=== PATIENT | female | born 1960 | race African-American/Black ===

== ENCOUNTER 2016-09-20 10:24 | Inpatient (IN) | payer OTHER ==
[~2016-09-20] VITALS: Ht 157.5 cm; Wt 71.2 kg
[2016-09-20 12:00] VITALS: BP_SYST 134
[2016-09-20 14:47] LABS: BASOPHILS # (AUTO) 0.1 K/uL (0.0-0.2); BASOPHILS % (AUTO) 1.7 % (0.0-2.0); EOSINOPHILS # (AUTO) 0.1 K/uL (0.0-0.4); EOSINOPHILS % (AUTO) 1.1 % (0.0-4.0); HEMATOCRIT 41.1 % (36-48); HEMOGLOBIN 13.6 g/dL (12.0-16.0); LYMPHOCYTES # (AUTO) 2.1 K/uL (1.0-5.5); LYMPHOCYTES % (AUTO) 36.2 % (20.5-51.5); MEAN CORPUSCULAR HEMOGLOBIN 26 pg (27-31); MEAN CORPUSCULAR HGB CONC 33 % (32-36); MEAN CORPUSCULAR VOLUME 79 fL (79.0-98.0); MONOCYTES # (AUTO) 0.6 K/uL (0.0-1.0); MONOCYTES % (AUTO) 10.3 % (1.7-9.3); NEUTROPHILS # (AUTO) 2.9 K/uL (1.8-7.7); NEUTROPHILS % (AUTO) 50.7 % (40.0-70.0); PLATELET COUNT (AUTO) 292 K/uL (130-430); RED BLOOD CELL COUNT(AUTO) 5.24 MIL/uL (4.2-6.2); WHITE BLOOD COUNT (AUTO) 5.8 K/uL (4.8-10.8)
[2016-09-20 15:06] LABS: CALCIUM 8.6 mg/dL (8.4-11.0); CREATININE 1.05 mg/dL (0.55-1.30); POTASSIUM 3.7 mmol/L (3.5-5.1)
[2016-09-20 15:11] LABS: ALBUMIN 3.4 g/dL (3.4-4.8); TOTAL BILIRUBIN 0.6 mg/dL (0.0-1.0); TOTAL PROTEIN, SERUM 7.2 g/dL (6.4-8.3)
[2016-09-20 15:28] LABS: ERYTHROCYTE SEDIMENTATION RATE 9 MM/HR (0-20)
[2016-09-20 16:29] VITALS: BP_SYST 122
[2016-09-20 19:17] VITALS: BP_SYST 122
[2016-09-20] MEDS ORDERED: CEL20 PO (22:22)
[2016-09-20] MEDS ORDERED: ONDA4TAB22 PO (22:22)
[2016-09-20] MEDS ORDERED: DICL100G16 TP (22:22)
[2016-09-20] MEDS ORDERED: CALC0.258 PO (22:22)
[2016-09-20] MEDS ORDERED: RANI300T7 PO (22:22)
[2016-09-20] MEDS ORDERED: ALBU8.5H8 INH (22:22)
[2016-09-20] MEDS ORDERED: ROSU10TA25 PO (22:22)
[2016-09-20] MEDS ORDERED: ESTR10TA VG (22:22)
[2016-09-20] MEDS ORDERED: QUET50TA13 PO (22:22)
[2016-09-20] MEDS ORDERED: WARF10TA21 PO (22:22)
[2016-09-20] MEDS ORDERED: AMLO5TAB92 PO (22:22)
[2016-09-20] MEDS ORDERED: LURA20TA PO (22:22)
[2016-09-20] MEDS ORDERED: SENN8.6T19 PO (22:22)
[2016-09-20] MEDS ORDERED: LEVO175T2 PO (22:22)
[2016-09-20] MEDS ORDERED: GABA300S PO (22:22)
[2016-09-20] MEDS ORDERED: ALPR1TAB2 PO (22:22)
[2016-09-20] MEDS ORDERED: ESTR42.53 VG (22:22)
[2016-09-20] MEDS ORDERED: IPRA21SP NS (22:22)
[2016-09-20] MEDS ORDERED: METO-304 PO (22:22)
[2016-09-20] MEDS ORDERED: FLUT9.9S NS (22:22)
[2016-09-20] MEDS ORDERED: LACO50TA2 PO (22:22)
[2016-09-20] MEDS ORDERED: CHOL100053 PO (22:22)
[2016-09-20] MEDS ORDERED: LAMO150T2 PO (22:22)
[2016-09-20] MEDS ORDERED: GLAT40SY SQ (22:22)
[2016-09-20 23:43] VITALS: BP_SYST 126
[2016-09-21] MEDS ORDERED: ALPRAZolam 0.25 MG TABLET PO PRN (00:30)
[2016-09-21] MEDS ORDERED: ONDANSETRON 4 MG ODT TAB PO PRN (00:30)
[2016-09-21] MEDS ORDERED: LEVALBUTEROL HCL 0.63 MG/3 ML VIAL.NEB INH PRN (00:45)
[2016-09-21] MEDS ORDERED: ALBUTEROL SULFATE 0.083% 2.5 MG/3 ML VIAL.NEB INH PRN (00:45)
[2016-09-21 01:31] VITALS: BP_SYST 126
[2016-09-21 02:16] LABS: INR 1.5 (0.8-1.2); PROTHROMBIN TIME 16.8 SECS (9.5-12.5)
[2016-09-21 05:57] VITALS: BP_SYST 130
[2016-09-21] MEDS ORDERED: LEVOTHYROXINE SODIUM 0.15 MG TABLET PO SCH (07:00)
[2016-09-21] MEDS ORDERED: LEVOTHYROXINE SODIUM 0.125 MG TABLET PO SCH (07:00)
[2016-09-21 08:00] VITALS: BP_SYST 133
[2016-09-21] MEDS ORDERED: GABAPENTIN 300 MG CAPSULE PO SCH (09:00)
[2016-09-21] MEDS ORDERED: CHOLECALCIFEROL (VITAMIN D3) 2,000 UNIT TABLET PO SCH ×2 (09:00)
[2016-09-21] MEDS ORDERED: METOPROLOL SUCCINATE 25 MG TAB.SR.24H (TOPROL XL) PO SCH (09:00)
[2016-09-21] MEDS ORDERED: CALCITRIOL 0.25 MCG CAPSULE PO SCH (09:00)
[2016-09-21] MEDS ORDERED: LamoTRIgine 25 MG TABLET PO SCH (09:00)
[2016-09-21] MEDS ORDERED: FAMOTIDINE 20 MG TABLET PO SCH (09:00)
[2016-09-21] MEDS ORDERED: CITALOPRAM HYDROBROMIDE 20 MG TABLET PO SCH (09:00)
[2016-09-21] MEDS ORDERED: amLODIPine BESYLATE 5 MG TABLET PO SCH (09:00)
[2016-09-21 11:30] VITALS: BP_SYST 122
[2016-09-21 12:22] VITALS: BP_SYST 112
[2016-09-21] MEDS ORDERED: WARFARIN SODIUM 5 MG TABLET PO SCH (18:00)
[2016-09-21] MEDS ORDERED: QUEtiapine FUMARATE 25 MG TABLET PO SCH (21:00)
[2016-09-21] MEDS ORDERED: SENNOSIDES 8.6 MG TABLET PO SCH (21:00)
== END 2016-09-21 12:14 | disposition home or self-care (01) | DRG 101 ==
LOC: SMU 11:56 → STU 11:57
PROVIDERS: ADMIT Internal Medicine Hospice and Palliative Medicine; ATTEND Internal Medicine Hospice and Palliative Medicine
DX: R56.9 Unspecified convulsions (principal); Q24.5 Malformation of coronary vessels; G35 Multiple sclerosis; I10 Essential (primary) hypertension; E78.5 Hyperlipidemia, unspecified; I25.10 Atherosclerotic heart disease of native coronary artery without angina pectoris; Z79.899 Other long term (current) drug therapy; Z95.1 Presence of aortocoronary bypass graft; I25.2 Old myocardial infarction; Z80.9 Family history of malignant neoplasm, unspecified
CPT/HCPCS: 36415; 70551; 80053; 85025; 85610-TC; 85651-TC; 85730-TC

== ENCOUNTER 2022-04-26 06:55 | Emergency (ER) | payer OTHER ==
[~2022-04-26] VITALS: Ht 162.6 cm; Wt 88.5 kg
[~2022-04-26 06:55] MED LIST: ALBU8.5H8 INH; ALPR1TAB2 PO; AMLO5TAB92 PO; CALC0.258 PO; CEL20 PO; CHOL100053 PO; DICL100G19 TP; ESTR10TA VG; ESTR42.53 VG; FLUT9.9S NS; GABA300S PO; GLAT40SY SQ; IPRA21SP NS; LACO50TA2 PO; LAMO150T2 PO; LEVO175T2 PO; LURA20TA PO; METO-540 PO; ONDA4TAB22 PO; QUET50TA PO; RANI300T7 PO; ROSU10TA29 PO; SENN8.6T19 PO; WARF10TA43 PO
[2022-04-26 07:11] VITALS: BP_SYST 125
[2022-04-26] MEDS ORDERED: KETOROLAC TROMETHAMINE 60 MG/2 ML VIAL IM ONE (07:45)
--- NOTE | 2022-04-26 07:50 | NUR ---
PT is AOx4, admitted to room 7 accompanied by . C/O left leg pain radiated from lower back for 1 month now gradiant 12/31 . Pain has increased in the last 24 hours. No relief meassures at home were effective. Past medical history of TIA, SD and MS. VSS bed in lowest position side rails up .
--- NOTE | 2022-04-26 07:56 | NUR ---
ER at bedside examining patient.
--- NOTE | 2022-04-26 08:15 | NUR ---
Medicated PT per Doctor order.
--- NOTE | 2022-04-26 08:20 | NUR ---
PT taken to radiology via wheelchair.
--- NOTE | 2022-04-26 08:40 | NUR ---
PT returned from Radiology via wheelchair. In bed resting comfortably. Bed in lowest position and side rails up.
--- NOTE | 2022-04-26 08:45 | NUR ---
Pt noted sleeping comfortably in bed. at bedside.
[2022-04-26] MEDS ORDERED: NAPR-688 PO (09:15)
[2022-04-26] MEDS ORDERED: TRAM50TA2 PO (09:15)
--- NOTE | 2022-04-26 09:37 | NUR ---
Patient given written and verbal discharge instructions and verbalizes understanding. ER MD discussed with patient the results and treatment provided. Patient in stable condition. ID arm band removed. Rx of Naproxen and Ultram given. Patient educated on pain management and to follow up with PMD. Opportunity for questions provided and answered. Medication side effect fact sheet provided.
[2022-04-26 10:23] VITALS: BP_SYST 125
--- NOTE | 2022-04-26 10:27 | NUR ---
Herson downey in ED - 04/26/22 at 1029 by [email or web address] PT returned from Radiology via wheelchair. In bed resting comfortably. Bed in lowest position and side rails up.
== END 2022-04-26 09:37 | disposition home or self-care (01) ==
LOC: SED 06:55
DX: M54.32 Sciatica, left side (principal); M79.662 Pain in left lower leg; Z79.899 Other long term (current) drug therapy
CPT/HCPCS: 99283; 72100; 96372; J1885

== ENCOUNTER 2023-05-20 18:37 | Emergency (ER) | payer OTHER ==
[~2023-05-20] VITALS: Ht 157.5 cm; Wt 86.2 kg
[~2023-05-20 18:37] MED LIST changes: -GABA300S PO; +GABA300S4 PO; +NAPR-688 PO; +TRAM50TA2 PO
[2023-05-20 19:04] VITALS: BP_SYST 138; PULSE 65; RESP 18; TEMP 97.8; O2SAT 98
[2023-05-20 21:09] LABS: BASOPHILS # (AUTO) 0.1 K/uL (0.0-0.2); EOSINOPHILS # (AUTO) 0.2 K/uL (0.0-0.4); EOSINOPHILS % (AUTO) 3.3 % (0.0-4.0); HEMATOCRIT 39.1 % (36-48); HEMOGLOBIN 13.6 g/dL (12.0-16.0); LYMPHOCYTES # (AUTO) 1.7 K/uL (1.0-5.5); MEAN CORPUSCULAR HEMOGLOBIN 28 pg (27-31); MEAN CORPUSCULAR HGB CONC 35 % (32-36); MEAN CORPUSCULAR VOLUME 80 fL (79.0-98.0); MONOCYTES # (AUTO) 0.7 K/uL (0.0-1.0); MONOCYTES % (AUTO) 12.2 % (1.7-9.3); NEUTROPHILS # (AUTO) 2.9 K/uL (1.8-7.7); NEUTROPHILS % (AUTO) 52.5 % (40.0-70.0); PLATELET COUNT (AUTO) 252 K/uL (130-430); RED BLOOD CELL COUNT(AUTO) 4.88 MIL/uL (4.2-6.2); RED CELL DISTRIBUTION WIDTH 14.7 % (9.0-15.0); WHITE BLOOD COUNT (AUTO) 5.5 K/uL (4.8-10.8)
[2023-05-20 21:27] LABS: ANION GAP 7 (5-15); CALCIUM 8.6 mg/dL (8.4-11.0); CARBON DIOXIDE 30 mmol/L (23-29); CHLORIDE 107 mmol/L (98-107); CREATININE 0.99 mg/dL (0.55-1.30); GFR AFRICAN AMERICAN 73 mL/min (>90); GLUCOSE 87 mg/dL (74-106); POTASSIUM 3.9 mmol/L (3.5-5.1); SODIUM SERUM 144 mmol/L (136-145); UREA NITROGEN, BLOOD 12 mg/dL (8-21)
[2023-05-20 21:29] LABS: GFR NON AFRICAN-AMERICAN 60 mL/min (>90)
[2023-05-20 23:05] VITALS: BP_SYST 154; PULSE 68; RESP 18; TEMP 96.4; O2SAT 96
== END 2023-05-20 23:05 | disposition home or self-care (01) ==
LOC: SED 18:37
DX: S00.81XA Abrasion of other part of head, initial encounter (principal); I10 Essential (primary) hypertension; E78.5 Hyperlipidemia, unspecified; Z79.899 Other long term (current) drug therapy; W18.30XA Fall on same level, unspecified, initial encounter; Y93.89 Activity, other specified; Y92.89 Other specified places as the place of occurrence of the external cause; Y99.8 Other external cause status
CPT/HCPCS: 36415; 70450-TC; 80048; 84484; 85025; 93005; 99284

== ENCOUNTER 2024-01-07 14:22 | Emergency (ER) | payer OTHER ==
[~2024-01-07] VITALS: Ht 157.5 cm; Wt 74.8 kg
[2024-01-07 14:22] VITALS: BP_SYST 130; PULSE 66; RESP 20; TEMP 97.1; O2SAT 100
[~2024-01-07 14:22] MED LIST changes: +METO-304 PO; -METO-540 PO; -ROSU10TA29 PO; +ROSU10TA72 PO
[2024-01-07 17:50] VITALS: BP_SYST 124; PULSE 70; RESP 17; TEMP 98.2; O2SAT 99
[2024-01-07 17:59] LABS: BILIRUBIN,URINE NEGATIVE (NEGATIVE); BLOOD, URINE NEGATIVE (NEGATIVE); CLARITY/URINE CLEAR (CLEAR); COLOR,URINE YELLOW (YELLOW); GLUCOSE,URINE NEGATIVE (NEGATIVE); KETONES,URINE NEGATIVE (NEGATIVE); LEUKOCYTE ESTERASE ,URINE NEGATIVE (NEGATIVE); NITRITE, URINE NEGATIVE (NEGATIVE); PROTEIN URINE TRACE (NEGATIVE); UROBILINOGEN,URINE 0.2 (0.2-1.0)
[2024-01-07] MEDS ORDERED: LORA10TA7 PO (18:16)
[2024-01-07 19:24] LABS: RBC,URINE NONE SEEN /HPF (0-3)
[2024-01-07 19:25] LABS: BACTERIA,URINE RARE /HPF (None Seen); WBC,URINE 0-3 /HPF (0-3)
[2024-01-07 19:26] LABS: MUCUS,URINE None Seen /LPF (None Seen)
== END 2024-01-07 18:25 | disposition home or self-care (01) ==
LOC: SED 14:22
DX: N39.3 Stress incontinence (female) (male) (principal); R22.0 Localized swelling, mass and lump, head; I10 Essential (primary) hypertension; E78.5 Hyperlipidemia, unspecified; Z79.899 Other long term (current) drug therapy; Z79.2 Long term (current) use of antibiotics
CPT/HCPCS: 81000; 81001; 81015; 99283